=== PATIENT | male | born 1960 | race Two or more races ===

== ENCOUNTER 2020-02-19 23:49 | Inpatient (IN) | payer OTHER ==
[~2020-02-19] VITALS: Ht 190.5 cm; Wt 83.7 kg
--- NOTE | 2020-02-20 01:35 | NUR ---
direct admit from [facility]. pt arrived awake, alert and oriented x4 with 2 guards accompanying. pt on 15L non rebreather no distress noted or expressed. pt denies any pain. pt oriented to this nurse, room, bed control, and bathroom. pt bed locked, low and 2x rails up. dr ramírez paged to notify of pt arrival. orders received. this nurse to round q1hr and prn. call light in reach, pt encouraged to call as needed.
[2020-02-20 05:00] VITALS: BP 131/82
--- NOTE | 2020-02-20 06:27 | NUR ---
Respiratory note: POX CHECK, PT IS ON A NRB 15L , HR 108, RR 22, SPO2 93%. BS ARE CLEAR AND DIMINISHED. GUARDS AT BEDSIDE.
[2020-02-20 09:16] VITALS: BP 130/81
[2020-02-20] MEDS ORDERED: AZITHROMYCIN 200 MG/5 ML ORAL SUSP PO SCH (10:00)
[2020-02-20] MEDS: cefTRIAXone 1GM/50ML D5W 50 ML IV SCH (11:00)
[2020-02-20] MEDS: methylPREDNISolone SOD SUCC 125 MG/2 ML VL IV SCH ×2 (11:01→23:12)
[2020-02-20] MEDS: ZINC SULFATE 220mg CAP or TAB PO SCH (11:01)
[2020-02-20 12:29] VITALS: BP 142/80
--- NOTE | 2020-02-20 15:00 | NUR ---
covid swab sent to lab via [facility].
[2020-02-20 16:27] VITALS: BP 140/88
--- NOTE | 2020-02-20 20:20 | NUR ---
open note assumed care of pt, upon entering room pt awake alert and oriented x4. pt on 15L non rebreather with no distress noted or expressed. pt denies any pain. pt has guard at bedside. pt oriented to this nurse, updated on plan of care. pt bed locked, low and 2x rails up. call light in reach, this nurse to round q1hr and prn. pt encouraged to call as needed.
[2020-02-20 21:44] VITALS: BP 141/88
[2020-02-21 05:24] VITALS: BP 117/78
[2020-02-21 08:33] VITALS: BP 135/84
[2020-02-21] MEDS: cefTRIAXone 1GM/50ML D5W 50 ML IV SCH (10:08)
[2020-02-21] MEDS: ZINC SULFATE 220mg CAP or TAB PO SCH (10:09)
[2020-02-21] MEDS: methylPREDNISolone SOD SUCC 125 MG/2 ML VL IV SCH ×3 (10:09→21:55)
[2020-02-21] MEDS: AZITHROMYCIN 250 MG TAB PO SCH (10:24)
[2020-02-21 12:33] VITALS: BP 144/91
[2020-02-21 16:40] VITALS: BP 142/86
[2020-02-21 22:00] VITALS: BP 137/89
--- NOTE | 2020-02-22 | NUR ---
Change in Respirations Patient's respiration rate noted to be 36 breaths per minute with use of accessory muscle. Patient is on nonrebreather 15L/min, SPO2: 90% at this time. When patient asked several times if he had shortness of breath, patient denied shortness of breath. Will update Dr. Marrero on change of status from initial assessment.
--- NOTE | 2020-02-22 00:12 | NUR ---
Spoke with Dr. Marrero RE: Increase in Respiration Rate Notified Dr. Marrero that patient's respiration rate is 36 with use of accessory muscle. Dr. Marrero also notified that patient denies shortness of breath at this time. Dr. Marrero aware that patient's oxygen saturation is 90% at this time. Orders for STAT ABG received and to call him back with results. Order read back and verified. Will carry out orders as received. Addendum: 02/22/20 at 0140 by SUSANA AGOSTO RN RN Patient on 15L/min nonrebreather.
--- NOTE | 2020-02-22 00:19 | NUR ---
RT Paged for STAT ABG RT paged for STAT ABG.
--- NOTE | 2020-02-22 00:39 | NUR ---
Patient Assisted into Prone Position Patient's oxygen saturation sustaining in between 86-89% on 15L/min nonrebreather. Patient assisted into prone position, patient tolerating well. Patient's oxygen saturation is 89% on 15L/min nonrebreather at this time. Will continue care.
--- NOTE | 2020-02-22 00:50 | NUR ---
RT at Bedside RT at bedside drawing ABG's.
--- NOTE | 2020-02-22 01:22 | NUR ---
Unsuccessful ABG Draw Per RT Johnson he attempted to draw ABG several times and was unsuccessful. Per RT Johnson he will try to find another RT that is available and send them in to draw ABG's.
--- NOTE | 2020-02-22 01:35 | NUR ---
Rounds Patient is in prone position, SPO2: 95% at this time on 15L/min nonrebreather. Respiration rate at this time is 32 breaths per minute. Guards noted at the bedside. Will continue care.
--- NOTE | 2020-02-22 02:36 | NUR ---
Rounds Patient in prone position, patient tolerating well. Patient's respiration rate is 27 breaths per minute. Patient is on 15L/min nonrebreather, SPO2: 95% at this time.
--- NOTE | 2020-02-22 03:00 | NUR ---
Follow up on ABG Draw Called respiratory therapist to follow up on ABG draw. Spoke with RT Merrill, per RT Merrill respirations of 27 breaths per minute are "normal for covid-19" and she will see what they can do about sending in a respiratory therapist to attempt and draw ABG's for patient. RT Merrill aware that order was received per Dr. Marrero. Patient is currently in prone position with SPO2 at 95% on 15L/min nonrebreather with respiration rate of 27 breaths per minute. No sign/symptoms of distress noted or verbalized at this time.
[2020-02-22 04:57] VITALS: BP 123/77
--- NOTE | 2020-02-22 05:24 | NUR ---
Rounds Patient is sitting in high fowlers position. SPO2 at this time is 92% on 15L/min nonrebreather, RR: 28, HR: 62. Patient denies shortness of breath at this time. No sign/symptoms of distress verbalized at this time. Bed is locked in lowest position, side rails x 2 are up, call light is with reach, and guards noted at the bedside.
--- NOTE | 2020-02-22 06:55 | NUR ---
RECEIVED PT ON 15 LITERS NONREBREATHER, SPO2 94%, NO S/S OF RESPIRATORY DISTRESS. RR 25-30 AND SHALLOW. PT AGREES TO HAVING ANXIETY. NOC RN STATES ABG ORDERED ON NOC SHIFT DUE TO PT TACHYPNEA. PT IS CURRENTLY NOT IN RESPIRATORY DISTRESS AT THIS TIME. WILL ASK MD OWENS ABOUT OBTAINING ABG.
--- NOTE | 2020-02-22 07:16 | NUR ---
Closing Shift Note Patient is sitting in high fowlers position, SPO2: 94% on 15L/min nonrebreather, RR: 24, HR: 68. Patient denies shortness of breath at this time. No sign/symptoms of distress noted or verbalized at this time. Guard noted at the bedside. Patient care endorsed to day shift BARBARA Galvan.
[2020-02-22 08:56] VITALS: BP 134/88
[2020-02-22] MEDS: AZITHROMYCIN 250 MG TAB PO SCH (09:32)
[2020-02-22] MEDS: ZINC SULFATE 220mg CAP or TAB PO SCH (09:32)
[2020-02-22] MEDS: cefTRIAXone 1GM/50ML D5W 50 ML IV SCH (09:32)
[2020-02-22] MEDS: methylPREDNISolone SOD SUCC 125 MG/2 ML VL IV SCH ×2 (09:33→21:42)
[2020-02-22 12:10] VITALS: BP 144/85
--- NOTE | 2020-02-22 14:00 | NUR ---
SPOKE TO DR. OWENS, PER ABG NOT NEEDED DUE TO PT STATUS IMPROVED THIS AM.
--- NOTE | 2020-02-22 16:28 | NUR ---
INCENTIVE SPIROMETER GIVEN TO PATIENT DEMONSTRATED HOW TO USE IT PATIENT DEMONSTRATED PROPER USE.
[2020-02-22 16:48] VITALS: BP 135/92
--- NOTE | 2020-02-22 20:00 | NUR ---
Opening Shift Note Assumed care of patient, awake and alert x4. Patient is on 15L/min nonrebreather, SPO2: 92%. Patient denies shortness of breath or pain at this time. Instructed on plan of care and encouraged patient to call for assistance as needed, patient verbalized understanding. Incentive spirometer noted at the bedside, encouraged patient to use incentive spirometer at least 10 times while awake, patient verbalized understanding. Bed is locked in lowest position, side rails x 2 are up, call light is within reach, and guard noted at the bedside.
[2020-02-22 22:00] VITALS: BP 136/81
--- NOTE | 2020-02-23 04:14 | NUR ---
Prone Position Patient's oxygen saturation was sustaining at 88% on 15L/min nonrebreather. Assisted patient into prone position, patient tolerating well. Patient's oxygen saturation has increased to 94% on 15L/min nonrebreather. Patient denies shortness of breath at this time. No sign/symptoms of distress noted or verbalized at this time. Will continue care.
[2020-02-23 05:29] VITALS: BP 138/89
--- NOTE | 2020-02-23 05:30 | NUR ---
Rounds Patient is in prone position, tolerating well with even and unlabored respirations noted. SPO2 at this time is 96% on 15L/min nonrebreather. No sign/symptoms of distress noted or verbalized at this time. Guard noted at the bedside. Will continue care.
--- NOTE | 2020-02-23 06:06 | NUR ---
Respiratory note:POX CHECK, PT ASSESSED NO RESP DISTRESS NOTED. HR 96, RR 18, SPO2 94% ON 15L NRB.
[2020-02-23 09:00] VITALS: BP 132/91
[2020-02-23] MEDS: cefTRIAXone 1GM/50ML D5W 50 ML IV SCH (09:36)
[2020-02-23] MEDS: methylPREDNISolone SOD SUCC 125 MG/2 ML VL IV SCH ×2 (09:36→23:03)
[2020-02-23] MEDS: AZITHROMYCIN 250 MG TAB PO SCH (09:36)
[2020-02-23] MEDS: ENOXAPARIN SOD 40 MG/0.4 ML SYRINGE SC SCH (09:36)
[2020-02-23] MEDS: ZINC SULFATE 220mg CAP or TAB PO SCH (09:36)
[2020-02-23 10:12] LABS: Albumin 2.3 g/dL (3.4-5.0); Calcium 7.8 mg/dL (8.5-10.1); Potassium 4.5 mmol/L (3.5-5.1)
[2020-02-23 10:17] LABS: BUN/Creatinine Ratio 34.2; Bilirubin, Total 0.6 mg/dL (0.2-1.0); Total Protein 6.2 g/dL (6.4-8.2)
--- NOTE | 2020-02-23 11:39 | NUR ---
Nutrition Assessment Notes please see attached link for complete assessment Est energy needs BW 93 [id number] kcal (25-30kcal/kg BW), Est protein 93-111g (1.0-1.2 g/kgBW). Will reassess prn. Addendum: 02/23/20 at [address] Amended: Links added.
[2020-02-23 12:50] VITALS: BP 135/92
[2020-02-23 17:00] VITALS: BP 151/94
[2020-02-23] MEDS: PANTOPRAZOLE 40 MG TAB PO SCH (17:49)
[2020-02-23 20:00] VITALS: BP 131/86
[2020-02-23 22:00] VITALS: BP 131/86
--- NOTE | 2020-02-24 00:32 | NUR ---
ROUNDS Patient is resting in bed with eyes closed, no distress noted, saturating at 94% on 15L non-rebreather.
[2020-02-24 05:00] VITALS: BP 136/82
--- NOTE | 2020-02-24 06:13 | NUR ---
Patient moved from 232 to 248A with all personal belongings. No distress noted at time of transfer. Patient is saturating at 92% on 15L non-rebreather. Patient denies pain.
[2020-02-24 09:00] VITALS: BP 111/71
[2020-02-24] MEDS: ZINC SULFATE 220mg CAP or TAB PO SCH (10:12)
[2020-02-24] MEDS: cefTRIAXone 1GM/50ML D5W 50 ML IV SCH (10:12)
[2020-02-24] MEDS: AZITHROMYCIN 250 MG TAB PO SCH (10:13)
[2020-02-24] MEDS: PANTOPRAZOLE 40 MG TAB PO SCH (10:13)
[2020-02-24] MEDS: methylPREDNISolone SOD SUCC 125 MG/2 ML VL IV SCH ×2 (10:13→22:24)
[2020-02-24 13:00] VITALS: BP 120/73
[2020-02-24] MEDS: ENOXAPARIN SOD 40 MG/0.4 ML SYRINGE SC SCH (14:15)
[2020-02-24 18:06] VITALS: BP 129/81
--- NOTE | 2020-02-24 19:25 | NUR ---
Opening Shift Note Assumed care of patient. Patient is awake and alert, oriented x4. Patient denies shortness of breath, nausea, or pain at this time. Respirations are regular and non-labored. Patient is on 15 L/min nonrebreather, SPO2 92%. Bed is locked in lowest position, side rails up x 2, call light is within reach, and guard at the bedside. Patient is instructed on plan of care and encouraged to call for assistance as needed, patient verbalized understanding. Patient encourage to use incentive spirometer at least 10 times every hour while awake. Will continue to monitor Q1H or/and PRN.
[2020-02-24 20:00] VITALS: BP 123/77
--- NOTE | 2020-02-24 21:43 | NUR ---
Respiratory note: PT SEEN AND ASSESSED FOR PRN MED NEB TX AT 2143. TX IS NOT INDICATED AT THIS TIME. PT DISPLAYING NO SIGNS OF DISTRESS. HR 88 RR 18 SP02 91% ON NRB MASK.
[2020-02-24 22:00] VITALS: BP 123/77
[2020-02-25 05:00] VITALS: BP 108/63
--- NOTE | 2020-02-25 07:57 | NUR ---
Respiratory note: PT RESTING COMFORTABLY. NO RESPIRATORY DISTRESS NOTED. SPO2 92% ON 15L NON-REBREATHER, HR 79, RR 20, BS CLEAR/DIMINISHED BILATERALLY. PT INFORMED TO PUSH CALL BUTTON IF INCREASED WOB, SOB, OR WHEEZING OCCURS. GUARD AT BED SIDE. WILL CONTINUE TO MONITOR PT.
[2020-02-25 09:00] VITALS: BP 119/72
[2020-02-25] MEDS: PANTOPRAZOLE 40 MG TAB PO SCH (09:16)
[2020-02-25] MEDS: methylPREDNISolone SOD SUCC 125 MG/2 ML VL IV SCH ×2 (09:16→21:38)
[2020-02-25] MEDS: cefTRIAXone 1GM/50ML D5W 50 ML IV SCH (09:16)
[2020-02-25] MEDS: ZINC SULFATE 220mg CAP or TAB PO SCH (09:16)
[2020-02-25] MEDS: AZITHROMYCIN 250 MG TAB PO SCH (09:17)
[2020-02-25] MEDS: ENOXAPARIN SOD 40 MG/0.4 ML SYRINGE SC SCH (09:17)
[2020-02-25 11:39] LABS: Hepatitis A Ab IgM Negative; Hepatitis B Core IgM Negative; Hepatitis B Surface Antigen Negative (Negative); Hepatitis C Antibody Negative (Negative)
[2020-02-25 12:00] VITALS: BP 123/78
--- NOTE | 2020-02-25 15:01 | NUR ---
O2 TITRATION PLACED PATIENT ON 12 L OXYMIZER. PATIENTS O2 SATURATION IS 92-93% NO S/S OF DISTRESS NOTED.
[2020-02-25 17:00] VITALS: BP 121/75
--- NOTE | 2020-02-25 19:10 | NUR ---
Opening Shift Note Received report from corey Jon RN. Assumed care of patient, awake and alert. No S/S of distress/SOB or pain. On 12L Oxymizer saturating at 93%. Instructed on POC and to call for assist PRN, will continue to monitor for changes Q1hr and PRN.
[2020-02-25 22:00] VITALS: BP 105/57
[2020-02-26] VITALS (7 sets, daily range): BP systolic 104–123; BP diastolic 63–78
--- NOTE | 2020-02-26 07:07 | NUR ---
ROUNDS Patient is alert and awake. No distress noted and patient denies pain. Patient is saturating at 93% on 12L Oxymizer. Patient denies pain.
--- NOTE | 2020-02-26 07:45 | NUR ---
opening shift note Assumed care of patient from NOC RN. Patient is AOX4 no s/s of distress noted. Bed is in lowest locked position, side rails up x2, 2 guards at bedside and call light is within reach. Updated patient on plan of care and patient verbalized understanding. Will continue to monitor q1hr and PRN.
[2020-02-26] MEDS: cefTRIAXone 1GM/50ML D5W 50 ML IV SCH (09:07)
[2020-02-26] MEDS: methylPREDNISolone SOD SUCC 125 MG/2 ML VL IV SCH ×2 (09:07→22:12)
[2020-02-26] MEDS: ZINC SULFATE 220mg CAP or TAB PO SCH (09:07)
[2020-02-26] MEDS: AZITHROMYCIN 250 MG TAB PO SCH (09:08)
[2020-02-26] MEDS: PANTOPRAZOLE 40 MG TAB PO SCH (09:08)
[2020-02-26] MEDS: ENOXAPARIN SOD 40 MG/0.4 ML SYRINGE SC SCH (09:09)
--- NOTE | 2020-02-26 09:15 | NUR ---
IV removal IV on Left forearm DC'd with clean sterile technique, catheter fully intact. Pressure dressing applied to site. Patient tolerated well.
[2020-02-26] MEDS: ALBUTEROL SULF HFA 90MCG INH 200DOSE IN SCH ×2 (14:00→21:57)
--- NOTE | 2020-02-26 16:06 | NUR ---
Nutrition Followup Notes Pt wt is 90.2 kg Pt is positive for COVID. Pt is with a Regular diet, appetite is fair aeb ave 58% PO intake over 2 days per RN doc. Pt with no distress or pain per records. Will continue to monitor PO status, skin status, pertinent labs and weight trends. Will f/u in 3-5 days. Est energy needs BW 93 [id number] kcal (25-30kcal/kg BW), Est protein 93-111g (1.0-1.2 g/kgBW). Will reassess prn. LABS: Gluc 188 H, Ca 7.8 L, Alb 2.3 L GI: Pt had 1 BM on 02/23 per RN doc. BS: 20 low risk. Refer to wound assessment report for full details. PES: No current Nutritional Problem Comments Continue current plan of care
--- NOTE | 2020-02-26 19:20 | NUR ---
Opening Shift Note Received report from corey Rios RN. Assumed care of patient, awake and alert. No S/S of distress/SOB or pain. Patient is saturating 94% on 12L Oxymizer. Instructed on POC and to call for assist PRN, will continue to monitor for changes Q1hr and PRN.
--- NOTE | 2020-02-26 19:20 | NUR ---
End of shift note Endorsed care to NOC RN. No s/s of distress noted.
[2020-02-27 05:00] VITALS: BP 118/76
--- NOTE | 2020-02-27 07:09 | NUR ---
ROUNDS Patient is resting in bed with eyes closed, no distress noted, saturating at 96% on 12L Oxymizer. Patient denies pain.
[2020-02-27] MEDS: ALBUTEROL SULF HFA 90MCG INH 200DOSE IN SCH ×3 (07:15→22:50)
--- NOTE | 2020-02-27 08:00 | NUR ---
ASSESSMENT NOTE Received report from corey WILKERSON RN. Assumed care of patient, awake and alert oriented x4, able to self reposition and verbalis his demand, No S/S of distress/SOB or pain. Saturating at 12 L Oxymizer. Guards at bedside. Instructed on POC and to call for assist PRN, will continue to monitor for changes Q1hr and PRN. Bed placed in lowest position and call light within reach.
[2020-02-27] MEDS: cefTRIAXone 1GM/50ML D5W 50 ML IV SCH (08:48)
[2020-02-27] MEDS: methylPREDNISolone SOD SUCC 125 MG/2 ML VL IV SCH ×2 (08:48→22:50)
[2020-02-27] MEDS: ZINC SULFATE 220mg CAP or TAB PO SCH (08:49)
[2020-02-27] MEDS: ENOXAPARIN SOD 40 MG/0.4 ML SYRINGE SC SCH (08:49)
[2020-02-27] MEDS: PANTOPRAZOLE 40 MG TAB PO SCH (08:49)
[2020-02-27] MEDS: AZITHROMYCIN 250 MG TAB PO SCH (08:49)
[2020-02-27 09:00] VITALS: BP 108/66
--- NOTE | 2020-02-27 10:00 | NUR ---
EDUCATED PT OF HOW TO USE INCENTIVE SPIROMETER AND WHY, VERBALIS UNDERSTANDING
[2020-02-27 12:54] VITALS: BP 115/74
--- NOTE | 2020-02-27 15:00 | NUR ---
DR OWENS IS HERE FOLLOWING UP ON PT, AWARE OF PT BUN AND THE REST OF THE LAB FOR TODAY
[2020-02-27 17:11] VITALS: BP 112/71
--- NOTE | 2020-02-27 19:00 | NUR ---
PT CONTINUE STABLE, CONTINUE MONITORING
--- NOTE | 2020-02-27 19:20 | NUR ---
Opening Shift Note Received report from day RN. Assumed care of patient, awake and alert. No S/S of distress/SOB or pain. Patient is saturating 98% on 10L Oxymizer. Instructed on POC and to call for assist PRN, will continue to monitor for changes Q1hr and PRN.
[2020-02-27] MEDS ORDERED: guaiFENesin 200 MG/10 ML UD PO PRN (20:45)
[2020-02-27 22:00] VITALS: BP 105/65
[2020-02-27] MEDS: ASCORBIC ACID 500 MG TAB PO SCH (22:51)
[2020-02-28 05:00] VITALS: BP 115/70
[2020-02-28] MEDS: ALBUTEROL SULF HFA 90MCG INH 200DOSE IN SCH ×3 (07:12→22:00)
--- NOTE | 2020-02-28 07:28 | NUR ---
end of shift notes endorse care to day shift RN , pt AOX4 , no sign and symptoms of distress or sob
[2020-02-28 07:31] LABS: Hemoglobin 14.5 g/dL (13.5-17.5); Mean Corpuscular Hemoglobin 27.2 pg (28.0-32.0); Mean Corpuscular Hgb Conc. 32.3 g/dL (32.0-36.0); Mean Corpuscular Volume 84.3 fL (80.0-100.0); Platelet Count (auto) 430 10^3/uL (140-450); Red Blood Cells 5.33 10^6/uL (4.5-5.90); Red Cell Distribution Width 13.3 % (11.8-14.3); White Blood Cell 15.2 10^3/uL (4.4-10.8)
[2020-02-28 07:39] LABS: Band Neutrophils % (manual) 0; Basophils % (manual) 0 (0.0-2.0); Blast Cells 0; Eosinophils % (manual) 0 (0-7); Metamyelocytes % 0; Reactive Lymphocytes 0
[2020-02-28 07:49] LABS: Albumin 2.4 g/dL (3.4-5.0); BUN/Creatinine Ratio 35.7; Calcium 7.9 mg/dL (8.5-10.1); Potassium 5.4 mmol/L (3.5-5.1)
[2020-02-28 07:52] LABS: Bilirubin, Total 0.5 mg/dL (0.2-1.0); Total Protein 6.4 g/dL (6.4-8.2)
--- NOTE | 2020-02-28 08:00 | NUR ---
ASSESSMENT NOTE Received report from corey ACOSTA RN. Assumed care of patient, awake and alert oriented x4, able to self reposition and verbalis his demand, No S/S of distress/SOB or pain. Saturating at 12 L Oxymizer. Guards at bedside. Instructed on POC and to call for assist PRN, will continue to monitor for changes Q1hr and PRN. Bed placed in lowest position and call light within reach.
[2020-02-28 08:01] LABS: Lymphocytes % (manual) 4 (10.0-50.0); Monocytes % (manual) 3 (0-12); Myelocytes % 3; Promyelocytes % 1
--- NOTE | 2020-02-28 08:23 | NUR ---
K+ 5.[address] OWENS
[2020-02-28 09:00] VITALS: BP 101/61
[2020-02-28] MEDS: THIAMINE 100mg/ml INJ (200mg/2ml VIAL) IV SCH (09:27)
[2020-02-28] MEDS: cefTRIAXone 1GM/50ML D5W 50 ML IV SCH (09:27)
[2020-02-28] MEDS: methylPREDNISolone SOD SUCC 125 MG/2 ML VL IV SCH ×2 (09:27→22:04)
[2020-02-28] MEDS: ZINC SULFATE 220mg CAP or TAB PO SCH (09:28)
[2020-02-28] MEDS: ASCORBIC ACID 500 MG TAB PO SCH ×2 (09:28→22:04)
[2020-02-28] MEDS: PANTOPRAZOLE 40 MG TAB PO SCH (09:28)
[2020-02-28] MEDS: CHOLECALCIFEROL (VITD3) 1,000UNIT=25mCg TAB PO SCH (09:28)
[2020-02-28] MEDS: ENOXAPARIN SOD 40 MG/0.4 ML SYRINGE SC SCH (09:29)
[2020-02-28] MEDS: AZITHROMYCIN 250 MG TAB PO SCH (09:29)
--- NOTE | 2020-02-28 10:33 | NUR ---
CONTINUE ENCOURAGING PT TO USE THE INCENTIVE SPIROMETER 10X / HR
--- NOTE | 2020-02-28 14:23 | NUR ---
DR HONG IS HERE MADE AWARE OF PATIENT'S LABS
[2020-02-28 18:01] VITALS: BP 115/77
--- NOTE | 2020-02-28 18:56 | NUR ---
PT CONTINUE STABLE, CONTINUE MONITORING
--- NOTE | 2020-02-28 19:20 | NUR ---
Opening Shift Note Received report from day RN. Assumed care of patient, awake and alert. No S/S of distress/SOB or pain. Patient is saturating 95% on 9L Oxymizer. Instructed on POC and to call for assist PRN, will continue to monitor for changes Q1hr and PRN.
[2020-02-28] MEDS: ENOXAPARIN SOD 100 MG/1 ML SYRINGE SC SCH (22:04)
[2020-02-28 22:55] VITALS: BP 109/69
[2020-02-29 05:15] VITALS: BP 107/71
[2020-02-29] MEDS: ALBUTEROL SULF HFA 90MCG INH 200DOSE IN SCH ×3 (06:42→21:13)
--- NOTE | 2020-02-29 07:20 | NUR ---
end of shift notes endorse care to day shift RN , pt AOX4 , no sign and symptoms of distress or sob
--- NOTE | 2020-02-29 07:30 | NUR ---
OPENING NOTE ASSUMED CARE OF PT. ALERT AND ORIENTED. NO S/S OF SOB/DISTRESS NOTED. BED SET TO LOWEST POSITION/LOCKED. BEDSIDE RAILS UP X2. CALL LIGHT WITHIN REACH. INSTRUCTED PATIENT TO CALL FOR ASSISTANCE. UPDATED ON POC. WILL CONTINUE TO MONITOR Q1HR AND PRN.
[2020-02-29 08:10] VITALS: BP 105/72
[2020-02-29] MEDS: THIAMINE 100mg/ml INJ (200mg/2ml VIAL) IV SCH (09:08)
[2020-02-29] MEDS: cefTRIAXone 1GM/50ML D5W 50 ML IV SCH (09:08)
[2020-02-29] MEDS: methylPREDNISolone SOD SUCC 125 MG/2 ML VL IV SCH ×2 (09:09→22:47)
[2020-02-29] MEDS: PANTOPRAZOLE 40 MG TAB PO SCH (09:09)
[2020-02-29] MEDS: ZINC SULFATE 220mg CAP or TAB PO SCH (09:09)
[2020-02-29] MEDS: ASCORBIC ACID 500 MG TAB PO SCH ×2 (09:10→22:47)
[2020-02-29] MEDS: CHOLECALCIFEROL (VITD3) 1,000UNIT=25mCg TAB PO SCH (09:12)
[2020-02-29] MEDS: AZITHROMYCIN 250 MG TAB PO SCH (09:12)
[2020-02-29] MEDS: ENOXAPARIN SOD 100 MG/1 ML SYRINGE SC SCH ×2 (09:13→22:47)
[2020-02-29 13:00] VITALS: BP 103/64
[2020-02-29 13:15] VITALS: BP 105/72
--- NOTE | 2020-02-29 14:13 | NUR ---
Nutrition Followup Notes Pt wt is 88.0 kg Pt is positive for COVID. Pt is with a Regular diet, appetite improved and is good aeb ave 96% PO intake over 2 days per RN doc. Pt with no distress or pain per records. Will continue to monitor PO status, skin status, pertinent labs and weight trends. Will f/u in 3-5 days. Est energy needs BW 93 [id number] kcal (25-30kcal/kg BW), Est protein 93-111g (1.0-1.2 g/kgBW). Will reassess prn. LABS: Ca 7.9 L, Alb 2.4 L GI: Pt had 1 BM on 02/27 per RN doc. BS: 13 mod risk. Refer to wound assessment report for full details. PES: No current Nutritional Problem Comments Continue current plan of care
[2020-02-29 17:01] VITALS: BP 130/78
[2020-02-29 22:00] VITALS: BP 114/70
--- NOTE | 2020-03-01 00:05 | NUR ---
OPENING NOTE ASSUMED CARE OF PT. ALERT AND ORIENTED. NO S/S OF SOB/DISTRESS NOTED. BED SET TO LOWEST POSITION/LOCKED. BEDSIDE RAILS UP X2. CALL LIGHT WITHIN REACH. INSTRUCTED PATIENT TO CALL FOR ASSISTANCE. UPDATED ON POC. WILL CONTINUE TO MONITOR Q1HR AND PRN. O Addendum: 03/01/20 at 0007 by KARLA HUDSON RN THIS NOTE IS FOR 19:20 02/29/20
[2020-03-01 05:00] VITALS: BP 109/61
[2020-03-01] MEDS: ALBUTEROL SULF HFA 90MCG INH 200DOSE IN SCH ×3 (07:05→23:02)
--- NOTE | 2020-03-01 07:05 | NUR ---
Respiratory note: MDI GIVEN BY RT, TOLERATED WELL. HR 70, RR 16, SPO2 96% 4 OXYMIZER, BS CLEAR. NO SIGNS OR SYMPTOMS OF RESPIRATORY DISTRESS NOTED. WILL CONTINUE TO MONITOR ORDERED.
--- NOTE | 2020-03-01 07:35 | NUR ---
end of shift notes endorse care to day shift RN , pt AOX4 , no sign and symptoms of distress or sob
[2020-03-01 08:55] VITALS: BP 105/65
[2020-03-01] MEDS: THIAMINE 100mg/ml INJ (200mg/2ml VIAL) IV SCH (10:00)
[2020-03-01] MEDS: cefTRIAXone 1GM/50ML D5W 50 ML IV SCH (10:04)
[2020-03-01] MEDS: PANTOPRAZOLE 40 MG TAB PO SCH (10:06)
[2020-03-01] MEDS: methylPREDNISolone SOD SUCC 125 MG/2 ML VL IV SCH ×2 (10:06→21:29)
[2020-03-01] MEDS: ZINC SULFATE 220mg CAP or TAB PO SCH (10:06)
[2020-03-01] MEDS: AZITHROMYCIN 250 MG TAB PO SCH (10:07)
[2020-03-01] MEDS: CHOLECALCIFEROL (VITD3) 1,000UNIT=25mCg TAB PO SCH (10:07)
[2020-03-01] MEDS: ENOXAPARIN SOD 100 MG/1 ML SYRINGE SC SCH ×2 (10:07→21:28)
[2020-03-01] MEDS: ASCORBIC ACID 500 MG TAB PO SCH ×2 (10:07→21:28)
[2020-03-01 13:00] VITALS: BP 107/68
[2020-03-01 17:00] VITALS: BP 115/63
--- NOTE | 2020-03-01 19:20 | NUR ---
Opening Shift Note Assumed care of patient, awake and alert. No S/S of distress/SOB or pain. Bed is low, locked with 2x side rails up. Call light is within reach. Instructed on POC and to call for assist PRN, will continue to monitor for changes Q1hr and PRN.
[2020-03-01 22:00] VITALS: BP 113/70
[2020-03-02 05:00] VITALS: BP 100/73
--- NOTE | 2020-03-02 07:02 | NUR ---
end of shift notes will endorse care to day shift RN , pt AOX4 , no sign and symptoms of distress or sob
[2020-03-02 08:00] VITALS: BP 119/78
[2020-03-02] MEDS: cefTRIAXone 1GM/50ML D5W 50 ML IV SCH (08:59)
[2020-03-02] MEDS: THIAMINE 100mg/ml INJ (200mg/2ml VIAL) IV SCH (09:01)
[2020-03-02] MEDS: methylPREDNISolone SOD SUCC 125 MG/2 ML VL IV SCH ×2 (09:03→21:59)
[2020-03-02] MEDS: ASCORBIC ACID 500 MG TAB PO SCH ×2 (09:03→21:59)
[2020-03-02] MEDS: PANTOPRAZOLE 40 MG TAB PO SCH (09:03)
[2020-03-02] MEDS: ZINC SULFATE 220mg CAP or TAB PO SCH (09:03)
[2020-03-02] MEDS: ENOXAPARIN SOD 100 MG/1 ML SYRINGE SC SCH ×2 (09:04→21:59)
[2020-03-02] MEDS: AZITHROMYCIN 250 MG TAB PO SCH (09:04)
[2020-03-02] MEDS: CHOLECALCIFEROL (VITD3) 1,000UNIT=25mCg TAB PO SCH (09:04)
[2020-03-02] MEDS: ALBUTEROL SULF HFA 90MCG INH 200DOSE IN SCH ×3 (10:25→22:49)
[2020-03-02 12:00] VITALS: BP 123/82
--- NOTE | 2020-03-02 15:28 | NUR ---
Spoke with pt's nurse. Pt was independent with ambulation today without an assistive device. PT eval not required.
[2020-03-02 16:57] VITALS: BP 118/68
--- NOTE | 2020-03-02 22:50 | NUR ---
RT NOTE PT WAS SEEN BY RT FOR MDI TX. PT TOLERATES ALBUTEROL WELL VIA SPACER. PT IS ON 6L SIMPLE MASK. CONT ORDERED Addendum: 03/02/20 at 2251 by Farzaneh Treadwell RT Amended: Links added.
[2020-03-02 23:26] VITALS: BP 115/64
--- NOTE | 2020-03-02 23:34 | NUR ---
Opening Shift Note Assumed care of patient, awake and alert. No S/S of distress/SOB or pain. Bed is low, locked with 2x side rails up. Call light is within reach. Instructed on POC and to call for assist PRN, will continue to monitor for changes Q1hr and PRN. Addendum: 03/02/20 at 2335 by KARLA HUDSON RN this note is for 19:20 03/02/20
[2020-03-03 05:39] VITALS: BP 111/70
--- NOTE | 2020-03-03 07:10 | NUR ---
end of shift notes will endorse care to day shift RN , pt AOX4 , no sign and symptoms of distress or sob
[2020-03-03] MEDS: ALBUTEROL SULF HFA 90MCG INH 200DOSE IN SCH ×3 (07:15→23:34)
[2020-03-03 08:00] VITALS: BP 112/70
[2020-03-03] MEDS: cefTRIAXone 1GM/50ML D5W 50 ML IV SCH (09:17)
[2020-03-03] MEDS: THIAMINE 100mg/ml INJ (200mg/2ml VIAL) IV SCH (09:19)
[2020-03-03] MEDS: PANTOPRAZOLE 40 MG TAB PO SCH (09:20)
[2020-03-03] MEDS: methylPREDNISolone SOD SUCC 125 MG/2 ML VL IV SCH ×2 (09:20→23:37)
[2020-03-03] MEDS: ZINC SULFATE 220mg CAP or TAB PO SCH (09:20)
[2020-03-03] MEDS: CHOLECALCIFEROL (VITD3) 1,000UNIT=25mCg TAB PO SCH (09:21)
[2020-03-03] MEDS: ENOXAPARIN SOD 100 MG/1 ML SYRINGE SC SCH ×2 (09:21→23:37)
[2020-03-03] MEDS: AZITHROMYCIN 250 MG TAB PO SCH (09:21)
[2020-03-03] MEDS: ASCORBIC ACID 500 MG TAB PO SCH ×2 (09:23→23:37)
--- NOTE | 2020-03-03 11:41 | NUR ---
Nutrition Followup Notes Pt wt is 84.7 kg Pt is positive for COVID. Pt is with a Regular diet, appetite continues to be good aeb ave 100% PO intake over 2 days per RN doc. Pt with no distress or pain per records. Will continue to monitor PO status, skin status, pertinent labs and weight trends. Will f/u in 3-5 days. Est energy needs BW 93 [id number] kcal (25-30kcal/kg BW), Est protein 93-111g (1.0-1.2 g/kgBW). Will reassess prn. LABS: Ca 7.9 L, Alb 2.4 L, No new Labs since 02/27 GI: Pt had 1 BM on 03/03 per RN doc. BS: 20 low risk. Refer to wound assessment report for full details. PES: No current Nutritional Problem Comments Continue current plan of care
[2020-03-03 12:00] VITALS: BP 129/75
[2020-03-03 17:00] VITALS: BP 111/63
--- NOTE | 2020-03-03 19:20 | NUR ---
opening note pt positioned in semi fowlers with HOB at 30 degrees. respirations even and nonlabored on 6 liters oxymizer. pt denies pain or discomfort. POC discussed. pt verbalized understanding. bed in low locked position, call light within reach.
[2020-03-03 21:36] VITALS: BP 135/78
[2020-03-04 04:42] VITALS: BP 108/68
[2020-03-04] MEDS: ALBUTEROL SULF HFA 90MCG INH 200DOSE IN SCH ×3 (07:13→22:25)
--- NOTE | 2020-03-04 07:30 | NUR ---
Opening Shift Note Assumed care of patient, awake and alert. No S/S of distress/SOB or pain. Instructed on POC and to call for assist PRN, will continue to monitor for changes Q1hr and PRN. Fall precautions in place per safety protocol.
[2020-03-04 09:00] VITALS: BP 101/67
[2020-03-04] MEDS: cefTRIAXone 1GM/50ML D5W 50 ML IV SCH (10:24)
[2020-03-04] MEDS: PANTOPRAZOLE 40 MG TAB PO SCH (10:25)
[2020-03-04] MEDS: AZITHROMYCIN 250 MG TAB PO SCH (10:25)
[2020-03-04] MEDS: ZINC SULFATE 220mg CAP or TAB PO SCH (10:25)
[2020-03-04] MEDS: ASCORBIC ACID 500 MG TAB PO SCH ×2 (10:25→21:36)
[2020-03-04] MEDS: CHOLECALCIFEROL (VITD3) 1,000UNIT=25mCg TAB PO SCH (10:25)
[2020-03-04] MEDS: ENOXAPARIN SOD 100 MG/1 ML SYRINGE SC SCH ×2 (10:25→21:36)
[2020-03-04] MEDS: methylPREDNISolone SOD SUCC 125 MG/2 ML VL IV SCH ×2 (10:27→21:36)
[2020-03-04] MEDS: THIAMINE 100mg/ml INJ (200mg/2ml VIAL) IV SCH (11:40)
[2020-03-04 13:00] VITALS: BP 114/70
[2020-03-04 17:00] VITALS: BP_SYST 117; BP_SYST 125; BP_DIAS 67; BP_DIAS 74
--- NOTE | 2020-03-04 18:45 | NUR ---
Covid Swab Obtained covid swab per MD Orders. Will walk to lab at this time. Will cont to monitor patient.
--- NOTE | 2020-03-04 19:30 | NUR ---
Opening Shift Note Assumed care of patient, awake and alert. No S/S of distress/SOB or pain. Patient on 3L NC. Guards at bedside. Instructed on POC and to call for assist PRN, will continue to monitor for changes Q1hr and PRN.
[2020-03-04 20:00] VITALS: BP 110/69
--- NOTE | 2020-03-04 20:35 | NUR ---
[facility] Hospitalist Patient is c/o pain 05/10 all over body. [facility] hospitalist to obtain pain medications, waiting to call back. Addendum: 03/04/20 at 2239 by DAYTON AUSTIN RN RN Wrong Patient.
[2020-03-04 22:00] VITALS: BP 110/69
[2020-03-05 05:15] VITALS: BP 109/65
[2020-03-05] MEDS: ALBUTEROL SULF HFA 90MCG INH 200DOSE IN SCH ×3 (07:18→22:05)
[2020-03-05 09:00] VITALS: BP 111/67
[2020-03-05] MEDS: methylPREDNISolone SOD SUCC 125 MG/2 ML VL IV SCH ×2 (10:02→21:30)
[2020-03-05] MEDS: ASCORBIC ACID 500 MG TAB PO SCH ×2 (10:02→21:30)
[2020-03-05] MEDS: ZINC SULFATE 220mg CAP or TAB PO SCH (10:02)
[2020-03-05] MEDS: PANTOPRAZOLE 40 MG TAB PO SCH (10:02)
[2020-03-05] MEDS: cefTRIAXone 1GM/50ML D5W 50 ML IV SCH (10:02)
[2020-03-05] MEDS: THIAMINE 100mg/ml INJ (200mg/2ml VIAL) IV SCH (10:02)
[2020-03-05] MEDS: CHOLECALCIFEROL (VITD3) 1,000UNIT=25mCg TAB PO SCH (10:02)
[2020-03-05] MEDS: ENOXAPARIN SOD 100 MG/1 ML SYRINGE SC SCH ×2 (10:03→21:30)
[2020-03-05] MEDS: AZITHROMYCIN 250 MG TAB PO SCH (10:03)
[2020-03-05 13:00] VITALS: BP 118/68
[2020-03-05 17:00] VITALS: BP 112/61
[2020-03-05 20:00] VITALS: BP 116/67
--- NOTE | 2020-03-05 20:00 | NUR ---
Opening Shift Note Assumed care of patient, awake and alert. No S/S of distress/SOB or pain. Patient on 2L NC. Guards at bedside. Instructed on POC and to call for assist PRN, will continue to monitor for changes Q1hr and PRN.
[2020-03-05 22:00] VITALS: BP 116/67
[2020-03-06 05:00] VITALS: BP 110/73
[2020-03-06] MEDS: ALBUTEROL SULF HFA 90MCG INH 200DOSE IN SCH ×3 (07:20→22:49)
--- NOTE | 2020-03-06 08:00 | NUR ---
ASSESSMENT NOTE Received report from DYE MACHINE TENDER RN, day RN. Assumed care of patient, awake and alert oriented x4, able to self reposition and verbalis his demand, No S/S of distress/SOB or pain. Saturating at 2 L NC. Guards at bedside. Instructed on POC and to call for assist PRN, will continue to monitor for changes Q1hr and PRN. Bed placed in lowest position and call light within reach.
[2020-03-06] MEDS: cefTRIAXone 1GM/50ML D5W 50 ML IV SCH (08:39)
[2020-03-06] MEDS: methylPREDNISolone SOD SUCC 125 MG/2 ML VL IV SCH ×2 (09:03→21:36)
[2020-03-06] MEDS: THIAMINE 100mg/ml INJ (200mg/2ml VIAL) IV SCH (09:03)
[2020-03-06] MEDS: ZINC SULFATE 220mg CAP or TAB PO SCH (09:03)
[2020-03-06] MEDS: ENOXAPARIN SOD 100 MG/1 ML SYRINGE SC SCH ×2 (09:04→21:37)
[2020-03-06] MEDS: PANTOPRAZOLE 40 MG TAB PO SCH (09:04)
[2020-03-06] MEDS: ASCORBIC ACID 500 MG TAB PO SCH ×2 (09:04→21:37)
[2020-03-06] MEDS: CHOLECALCIFEROL (VITD3) 1,000UNIT=25mCg TAB PO SCH (09:04)
[2020-03-06] MEDS: AZITHROMYCIN 250 MG TAB PO SCH (09:04)
[2020-03-06 09:12] VITALS: BP 111/71
[2020-03-06 09:43] VITALS: BP 111/71
[2020-03-06 13:00] VITALS: BP 123/71
--- NOTE | 2020-03-06 13:30 | NUR ---
PT IS AMBULATING IN THE HALLWAYS, NO DISTRESS NOTED, CONTINUE MONITORING
--- NOTE | 2020-03-06 14:21 | NUR ---
Nutrition Followup Notes Pt wt is 84.2 kg Pt is positive for COVID. Pt is with a Regular diet, appetite continues to be good aeb ave 100% PO intake over 5 days per RN doc. Pt with no distress or pain per records. Will continue to monitor PO status, skin status, pertinent labs and weight trends. Will f/u in 3-5 days. Est energy needs BW 93 [id number] kcal (25-30kcal/kg BW), Est protein 93-111g (1.0-1.2 g/kgBW). Will reassess prn. LABS: Ca 7.9 L, Alb 2.4 L, No new Labs since 02/27 GI: Pt had 2 BMs on 03/06 per RN doc. BS: 21 low risk. Refer to wound assessment report for full details. PES: No current Nutritional Problem Comments Continue current plan of care
[2020-03-06 16:29] VITALS: BP 118/77
--- NOTE | 2020-03-06 18:42 | NUR ---
PT IS SITTING UP EATING DINNER, NO DISTRESS NOTED, CONTINUE MONITORING
--- NOTE | 2020-03-06 19:18 | NUR ---
Opening Shift Note Assumed care of patient, awake, alert and oriented x4, on 2L of oxygen via NC with even and unlabored respirations, no S/S of distress/SOB or pain. Patient able to ambulate independently, bed in lowest locked position, side rails up x2, call light within reach, and guards at bedside. Instructed on POC and to call for assist PRN, will continue to monitor for changes Q1hr and PRN.
[2020-03-06 22:00] VITALS: BP 120/73
[2020-03-07 05:00] VITALS: BP 112/70
[2020-03-07] MEDS: ALBUTEROL SULF HFA 90MCG INH 200DOSE IN SCH ×3 (07:07→22:58)
--- NOTE | 2020-03-07 08:00 | NUR ---
ASSESSMENT NOTE Received report from VETERINARY PRACTICE MANAGER RN, day RN. Assumed care of patient, awake and alert oriented x4, able to self reposition and verbalis his demand, No S/S of distress/SOB or pain. ON OXYGEN at 2 L NC SAT AT 95 %. Guards at bedside. Instructed on POC and to call for assist PRN, will continue to monitor for changes Q1hr and PRN. Bed placed in lowest position and call light within reach.
[2020-03-07 08:54] VITALS: BP 112/79
[2020-03-07] MEDS: THIAMINE 100mg/ml INJ (200mg/2ml VIAL) IV SCH (08:57)
[2020-03-07] MEDS: cefTRIAXone 1GM/50ML D5W 50 ML IV SCH (08:57)
[2020-03-07] MEDS: ASCORBIC ACID 500 MG TAB PO SCH ×2 (08:58→21:31)
[2020-03-07] MEDS: PANTOPRAZOLE 40 MG TAB PO SCH (08:58)
[2020-03-07] MEDS: methylPREDNISolone SOD SUCC 125 MG/2 ML VL IV SCH ×2 (08:58→21:30)
[2020-03-07] MEDS: ZINC SULFATE 220mg CAP or TAB PO SCH (08:58)
[2020-03-07] MEDS: CHOLECALCIFEROL (VITD3) 1,000UNIT=25mCg TAB PO SCH (08:59)
[2020-03-07] MEDS: AZITHROMYCIN 250 MG TAB PO SCH (08:59)
[2020-03-07] MEDS: ENOXAPARIN SOD 100 MG/1 ML SYRINGE SC SCH ×2 (08:59→21:31)
--- NOTE | 2020-03-07 09:30 | NUR ---
PT IS AMBULATING IN THE HALLWAYS, SAT ON ROOM AIR 93%
--- NOTE | 2020-03-07 12:15 | NUR ---
DR HONG ID HERE FOLLOWING UP ON PT WITH NEW ORDERS
[2020-03-07 13:00] VITALS: BP 126/76
[2020-03-07 17:08] VITALS: BP 112/73
--- NOTE | 2020-03-07 18:25 | NUR ---
PT CONTINUE STABLE, CONTINUE MONITORING.
--- NOTE | 2020-03-07 19:10 | NUR ---
Opening Shift Note Assumed care of patient, awake, alert and oriented x4, on room air with even and unlabored respirations, no S/S of distress/SOB or pain. Patient able to ambulate independently, bed in lowest locked position, side rails up x2, call light within reach, and guards at bedside. Instructed on POC and to call for assist PRN, will continue to monitor for changes Q1hr and PRN.
[2020-03-07 22:00] VITALS: BP 119/76
[2020-03-08 06:00] VITALS: BP 110/69
[2020-03-08] MEDS: ALBUTEROL SULF HFA 90MCG INH 200DOSE IN SCH ×3 (06:40→22:01)
--- NOTE | 2020-03-08 07:35 | NUR ---
opening shift note Assumed care of patient from NOC RN. Patient is AOX4, no SOB or distress noted. Bed is in lowest locked position, call light is with in reach, and side rails are up x2. Updated patient on plan of care and patient verbalized understanding. Will continue to monitor q1hr and PRN.
[2020-03-08] MEDS: THIAMINE 100mg/ml INJ (200mg/2ml VIAL) IV SCH (08:57)
[2020-03-08] MEDS: cefTRIAXone 1GM/50ML D5W 50 ML IV SCH (08:57)
[2020-03-08] MEDS: ZINC SULFATE 220mg CAP or TAB PO SCH (08:58)
[2020-03-08] MEDS: ASCORBIC ACID 500 MG TAB PO SCH ×2 (08:58→21:59)
[2020-03-08] MEDS: methylPREDNISolone SOD SUCC 125 MG/2 ML VL IV SCH ×2 (08:58→21:59)
[2020-03-08] MEDS: PANTOPRAZOLE 40 MG TAB PO SCH (08:58)
[2020-03-08] MEDS: ENOXAPARIN SOD 100 MG/1 ML SYRINGE SC SCH ×2 (08:58→21:59)
[2020-03-08] MEDS: CHOLECALCIFEROL (VITD3) 1,000UNIT=25mCg TAB PO SCH (08:58)
[2020-03-08] MEDS: AZITHROMYCIN 250 MG TAB PO SCH (08:58)
[2020-03-08 09:00] VITALS: BP 125/76
--- NOTE | 2020-03-08 10:30 | NUR ---
ROUNDING MD OWENS AT BEDSIDE. ALL QUESTIONS AND CONCERNS ADDRESSED AT THIS TIME
[2020-03-08 13:00] VITALS: BP 126/77
[2020-03-08 17:00] VITALS: BP 128/74
--- NOTE | 2020-03-08 20:00 | NUR ---
Opening Shift Note Assumed care of patient. Awake, alert and oriented x4. No S/S of distress/SOB or pain. Pt is sitting up in bed, on room air, with even and unlabored respirations. Instructed on POC and to call for assist PRN. Bed locked, in lowest position, call light within reach, side rails up x2. Will continue to monitor for changes Q1hr and PRN.
[2020-03-08 22:00] VITALS: BP 119/74
[2020-03-09 05:00] VITALS: BP 118/76
[2020-03-09] MEDS: ALBUTEROL SULF HFA 90MCG INH 200DOSE IN SCH ×2 (06:38→14:34)
--- NOTE | 2020-03-09 07:00 | NUR ---
Bed bath given.
[2020-03-09] MEDS: cefTRIAXone 1GM/50ML D5W 50 ML IV SCH (08:42)
[2020-03-09] MEDS: THIAMINE 100mg/ml INJ (200mg/2ml VIAL) IV SCH (08:42)
[2020-03-09] MEDS: methylPREDNISolone SOD SUCC 125 MG/2 ML VL IV SCH (08:43)
[2020-03-09] MEDS: ZINC SULFATE 220mg CAP or TAB PO SCH (08:44)
[2020-03-09] MEDS: PANTOPRAZOLE 40 MG TAB PO SCH (08:44)
[2020-03-09] MEDS: ASCORBIC ACID 500 MG TAB PO SCH (08:45)
[2020-03-09] MEDS: ENOXAPARIN SOD 100 MG/1 ML SYRINGE SC SCH (08:45)
[2020-03-09] MEDS: AZITHROMYCIN 250 MG TAB PO SCH (08:45)
[2020-03-09] MEDS: CHOLECALCIFEROL (VITD3) 1,000UNIT=25mCg TAB PO SCH (08:46)
[2020-03-09 09:00] VITALS: BP 114/69
[2020-03-09 11:41] VITALS: BP 114/69
--- NOTE | 2020-03-09 12:36 | NUR ---
Nutrition Followup Notes Wt: 83.7 kg Pt is positive for COVID. Pt is with a Regular diet, with adequte Po of 100% x 2 days per RN doc Est energy needs BW 93 [id number] kcal (25-30kcal/kg BW), Est protein 93-111g (1.0-1.2 g/kgBW). Will reassess prn. LABS: Ca 7.9 L, Alb 2.4 L, No new Labs since 02/27 GI: Pt had 2 BMs on 03/06 per RN doc. BS: 21 low risk. Refer to wound assessment report for full details. PES: No current Nutritional Problem Comments Continue current plan of care
[2020-03-09 13:00] VITALS: BP 114/73
[2020-03-09 14:41] VITALS: BP 114/69
--- NOTE | 2020-03-09 17:44 | NUR ---
Discharge instructions given as ordered. Encourage to follow up with PMD as instructed. All questions and concerns addressed. Patient verbalized understanding. Medication reconciliation form completed and copy given to patient. . IV removed with catheter intact, pressure dressing applied. Telemetry unit returned to ICU. Patient taken to vehicle via wheelchair with all personal belongings, accompanied by staff and guards. No distress noted at time of departure.
== END 2020-03-09 17:44 | DRG 177 ==
LOC: TELE 23:49 → EEVIPCON 23:49 → EAST 02-20 00:11 → TELE-EAST 02-20 07:00 → TELE-WESTW 02-24 16:50 → TELE-EAST 02-24 17:18
PROVIDERS: ADMIT Internal Medicine; ATTEND Internal Medicine
DX: U07.1 COVID-19 (principal); J12.89 Other viral pneumonia; J96.01 Acute respiratory failure with hypoxia; J98.11 Atelectasis; J98.2 Interstitial emphysema; J98.8 Other specified respiratory disorders; J22 Unspecified acute lower respiratory infection
CPT/HCPCS: 36415; 71045; 80053; 80074; 82728; 85007; 85027; 85379; 86141; 87070; 87205; 94640; 94760; G0378; J0696